=== PATIENT | male | born 1975 | race Caucasian/White ===

== ENCOUNTER → 2017-01-02 | Outpatient (CLI) | payer OTHER ==
[~2017-01-02] MED LIST: ATOR-22 PO; CYCL10TA6 PO; LISI-791 PO; METO25TA3 PO; PRED50TA PO
[2017-01-02 17:24] LABS: URINE APPEARANCE CLEAR (CLEAR); URINE BILIRUBIN NEG (NEG); URINE COLOR YELLOW; URINE NITRITE NEG (NEG); URINE PH 5.5 (4.5-7.5); URINE SPECIFIC GRAVITY 1.017 (1.000-1.030); UROBILINOGEN NEG (NEG); ZZUR CULT IF INDIC CLEAN CATCH NO
[2017-01-02 17:25] LABS: MANUAL MICROSCOPIC REQUIRED? NO; REVIEW REQ? NO
[2017-01-02 17:27] LABS: ALT/SGPT 36 U/L (12-78); BLOOD UREA NITROGEN 7 mg/dl (7-18); BUN/CREATININE RATIO 7.2 (10-20); CALCIUM 8.8 mg/dl (8.5-10.1); CARBON DIOXIDE 28 mmol/L (21-32); CHLORIDE 102 mmol/L (98-107); CHOLESTEROL 100 mg/dl (0-200); CREATININE 0.99 mg/dl (0.60-1.40); GLUCOSE 96 mg/dl (70-99); POTASSIUM 4.7 mmol/L (3.5-5.1); SODIUM 135 mmol/L (136-145); TRIGLYCERIDES 127 mg/dl (0-150); VERY LOW DENSITY LIPOPROT CALC 25 mg/dl
[2017-01-02 17:30] LABS: ALB/GLOB RATIO 1.2 (0.9-2); ALKALINE PHOSPHATASE 99 U/L (45-117); AST/SGOT 23 U/L (15-37); CHOLESTEROL/HDL RATIO 2.8; HDL CHOLESTEROL 36 mg/dl; LDL CHOLESTEROL CALCULATED 39 mg/dl
[2017-01-02 17:35] LABS: BASO % 0.5 %; BASO ABS # 0.03 K/uL (0-0.2); COMPLETE YES; HEMATOCRIT 43.4 % (42-52); IG% 0.2 %; LYMPH % 39.7 %; LYMPH ABS # 2.36 K/uL (1.2-3.4); MEAN CELL VOLUME 89.1 fL (80-100); MEAN CORPUSCULAR HEMOGLOBIN 31.2 pg (25-34); MEAN PLATELET VOLUME 10.9 fL (7.4-10.4); MONO % 4.7 %; NEUT % 50.9 %; PLATELET COUNT 178 K/uL (130-400); RED BLOOD COUNT 4.87 M/uL (4.7-6.1); WHITE BLOOD COUNT 5.94 K/uL (4.8-10.8)
[2017-01-03 06:21] LABS: ESTIMATED AVERAGE GLUCOSE 85 mg/dl; HA1C FLAG Normal (Normal)
== END | disposition home or self-care (01) ==
LOC: C.LABBFT 12:40
PROVIDERS: ATTEND Internal Medicine
DX: E78.5 Hyperlipidemia, unspecified (principal); R73.01 Impaired fasting glucose

== ENCOUNTER 2017-05-31 19:00 | Emergency (ER) | payer OTHER ==
[~2017-05-31] VITALS: Ht 172.7 cm; Wt 92.1 kg
[~2017-05-31 19:00] MED LIST changes: -ATOR-22 PO; -CYCL10TA6 PO; -METO25TA3 PO; -PRED50TA PO
[2017-05-31 19:17] VITALS: Ht 172.7 cm; Wt 92.1 kg
[2017-05-31] MEDS ORDERED: METO25TA3 PO (19:30)
[2017-05-31] MEDS ORDERED: ATOR-22 PO (19:30)
--- NOTE | 2017-05-31 20:14 | DIAGNOSTIC IMAGING REPORT ---
C-SPINE ROUTINE 4 OR 5 VIEWS CLINICAL HISTORY: Right-sided neck pain radiating into right shoulder. No known injury. COMPARISON STUDY: No previous studies for comparison. FINDINGS: There is straightening of the normal cervical lordosis. Vertebral body heights are maintained. No fracture is identified. Oblique projection demonstrates abnormal appearance of the right C3-C4 neural foramen with increased density projecting over this neural foramen and slight irregularity of the adjacent osseous structures. There is minimal multilevel disc space narrowing with mild osteophytosis. There is mild multilevel facet arthrosis. IMPRESSION: 1. Abnormal appearance of the right C3-C4 neural foramen. While this could be technical, an abnormality within this neural foramen cannot be excluded. A CT of the cervical spine could be obtained. 2. No cervical spine fracture. 3. Mild multilevel degenerative disc disease and facet arthrosis. Electronically signed by: Yaya Champion M.D. 05/31/2017 8:12 PM Dictated Date/Time: 05/31/2017 8:06 PM
--- NOTE | 2017-05-31 20:51 | DIAGNOSTIC IMAGING REPORT ---
CT OF THE CERVICAL SPINE WITHOUT CONTRAST CLINICAL HISTORY: Neck pain. Abnormal radiographs. COMPARISON STUDY: Cervical spine radiographs performed earlier today. TECHNIQUE: Helical axial images of the cervical spine were obtained without IV contrast. Sagittal and coronal reconstructions were viewed. A dose lowering technique was utilized adhering to the principles of ALARA. FINDINGS: There is slight reversal normal cervical lordosis. Craniocervical junction is intact. No acute cervical spine fracture or suspicious lesion is present. There is mild multilevel disc space narrowing and osteophytosis of the cervical spine. There is mild multilevel facet arthrosis. There is severe bony neural foraminal narrowing of the right C3-C4 neural foramen which accounts for the abnormality on radiographs. This is predominantly due to uncovertebral hypertrophy and to a lesser extent facet arthrosis. IMPRESSION: 1. No acute cervical spine fracture. 2. Severe bony narrowing of the right C3-C4 neural foramen which accounts for the abnormality on cervical spine radiographs. This narrowing is predominantly due to uncovertebral hypertrophy. This could be correlated with right C4 radiculopathy. 3. Mild multilevel degenerative disc disease and facet arthrosis of the cervical spine. Suboptimal evaluation of the central canal and neural foramen given CT technique. Electronically signed by: Yaya Champion M.D. 05/31/2017 8:50 PM Dictated Date/Time: 05/31/2017 8:43 PM
[2017-05-31] MEDS ORDERED: PRED50TA PO (21:41)
[2017-05-31] MEDS ORDERED: CYCL10TA6 PO (21:41)
--- NOTE | 2017-05-31 21:41 | EMERGENCY ROOM VISIT NOTE ---
History First contact with patient: 19:21 Chief Complaint: NECK PAIN Stated Complaint: R SHOULDER PAIN History of Present Illness The patient is a 41 year old male who presents to the Emergency Room with complaints of right-sided neck/shoulder pain. The patient states he has a pulling sensation in his right neck and shoulder which started last night. He states his symptoms worsened and became constant today. He applied ice without relief. He has not taken any medications for his symptoms. He denies any numbness or weakness of the arm. He denies any history of similar symptoms. He denies any significant injuries, but does state that he pulled on a shopping cart today which seemed to make his symptoms worse. He rates his discomfort an 8/10. Review of Systems A complete 10 point review of systems was reviewed with the patient with pertinent positives and negatives as per history of present illness. All else were negative. Past Medical/Surgical History Medical Problems: (1) History of - hypertension Social History Smoking Status: Current Every Day Smoker Alcohol Use: occasionally Housing Status: lives with family Current/Historical Medications Scheduled Atorvastatin (Lipitor), 20 MG PO QPM Metoprolol Succ (Toprol Xl) (Toprol-Xl), 25 MG PO DAILY Prednisone (Prednisone), 50 MG PO DAILY Scheduled PRN Cyclobenzaprine Hcl (Flexeril), 10 MG PO TID PRN for Pain Physical Exam Vital Signs Date Time Temp Pulse Resp B/P (MAP) Pulse Ox O2 Delivery O2 Flow Rate FiO2 05/31/17 21:57 36.7 96 16 142/78 96 05/31/17 19:17 36.7 96 16 142/78 96 Room Air Physical Exam VITALS: Vitals are noted on the nurse's note and reviewed by myself. Vital signs stable. GENERAL: This is a 41-year-old male, in no acute distress, nondiaphoretic, well- developed well-nourished. HEART: Regular rate and rhythm without murmurs gallops or rubs. LUNGS: Clear to auscultation bilaterally without wheezes, rales or rhonchi. No dullness to percussion. No retractions or accessory muscle use. MUSCULOSKELETAL: There is tenderness to palpation of the right cervical paraspinous muscles and right trapezius muscle. Full range of motion of bilateral upper extremities. Strength 5/5 in bilateral upper extremities. Radial pulses 2+. NEURO: Patient was alert and oriented to person place and time. Normal sensation to light and sharp touch. Deep tendon reflexes 2+ throughout. No focal neurological deficits. Medical Decision & Procedures ER Provider Diagnostic Interpretation: C-SPINE ROUTINE 4 OR 5 VIEWS IMPRESSION: 1. Abnormal appearance of the right C3-C4 neural foramen. While this could be technical, an abnormality within this neural foramen cannot be excluded. A CT of the cervical spine could be obtained. 2. No cervical spine fracture. 3. Mild multilevel degenerative disc disease and facet arthrosis. CT OF THE CERVICAL SPINE WITHOUT CONTRAST IMPRESSION: 1. No acute cervical spine fracture. 2. Severe bony narrowing of the right C3-C4 neural foramen which accounts for the abnormality on cervical spine radiographs. This narrowing is predominantly due to uncovertebral hypertrophy. This could be correlated with right C4 radiculopathy. 3. Mild multilevel degenerative disc disease and facet arthrosis of the cervical spine. Suboptimal evaluation of the central canal and neural foramen given CT technique. Medications Administered Medications (Trade) Dose Ordered Sig/Riley Route Start Time Stop Time Status Last Admin Dose Admin Cyclobenzaprine HCl (FLEXERIL 10MG Home Pack) 1 homepack UD ONCE PO 05/31/17 21:45 05/31/17 21:46 DC 05/31/17 21:56 1 HOMEPACK Prednisone (PredniSONE TAB) 60 mg STK-MED ONCE .ROUTE 05/31/17 21:50 05/31/17 21:51 DC 05/31/17 21:57 50 MG Medical Decision Differential diagnosis includes cervical radiculopathy, muscle spasm, pulled muscle, among others. The patient is a 41-year-old male who presents today complaining of right-sided neck and shoulder pain. X-ray was initially performed and showed a possible abnormality at C3 to C4. CT scan was performed for this reason and did show severe bony narrowing at C3 to C4, most likely causing the patient's radicular symptoms. He will be placed on a course of prednisone and Flexeril. He was given a home pack of Flexeril in the ED. He was referred back to his primary care provider for further evaluation of his symptoms. There are no neurological symptoms on exam today, but he was instructed to return back if he develops numbness or weakness of the arm. Medication Reconcilliation Current Medication List: was personally reviewed by me Blood Pressure Screening Patient's blood pressure: Elevated blood pressure Blood pressure disposition: Elevated BP felt to be situational Impression Primary Impression: Right cervical radiculopathy Departure Information Dispostion Home / Self-Care Condition GOOD Prescriptions Cyclobenzaprine Hcl (FLEXERIL) 10 Mg Tab 10 MG PO TID Y for Pain for 5 Days, #15 TAB Prov: Yoana Magaña .LINSEY 05/31/17 Prednisone (Prednisone) 50 Mg Tab 50 MG PO DAILY for 4 Days, #4 TAB Prov: Yoana Magaña PA-C 05/31/17 Referrals Erasto Marie M.D. (PCP) Patient Instructions [facility] Additional Instructions Prednisone as prescribed. You have been prescribed Flexeril (cyclobenzaprine) 1-2 tabs orally, three times per day. Do NOT exceed 30 mg (6 tabs) per day. Take your first dose at bedtime as it can make you drowsy. Always take all medications as prescribed. For pain control, you can use the following [id number] medicines (if >12 yo): - Regular strength (325mg/tab) Tylenol (acetaminophen) 2 tabs every 4-6 hours as needed. Do not exceed 12 tablets in a 24 hour period. Avoid taking more than 4 grams (4000 mg) of Tylenol per day. This includes any other sources of acetaminophen you may take on a regular basis. - Regular strength (200 mg/tab) Advil (ibuprofen) 1-2 tabs every 4-6 hours as needed. Do not exceed a dose of 3200 mg per day. Follow-up with Dr. Marie next week. Return to the emergency department with numbness of the arm, weakness of the arm , or any other new/concerning symptoms.
[2017-05-31] MEDS ORDERED: FLEXERIL HOME PACK 10 MG VIAL PO ONE (21:45)
[2017-05-31 21:57] VITALS: BP 142/78; PULSE 96; TEMP 36.7; O2SAT 96
--- NOTE | 2017-05-31 23:29 | EMERGENCY ROOM VISIT NOTE ---
ED Visit Note First contact with patient: 19:21 I have personally seen and evaluated the patient with the PA. I agree with the diagnosis and management decisions and have been personally involved in the case. Please see Yoana Magaña PA-C's notes for further details of the history, physical and visit.
== END 2017-05-31 21:55 | disposition home or self-care (01) ==
LOC: C.EDB 19:01 → C.EDD 21:55
DX: M54.12 Radiculopathy, cervical region (principal); I10 Essential (primary) hypertension; F17.200 Nicotine dependence, unspecified, uncomplicated; Z79.899 Other long term (current) drug therapy

== ENCOUNTER → 2018-01-09 | Outpatient (CLI) | payer OTHER ==
[~2018-01-09] MED LIST changes: +ATOR-22 PO; -LISI-791 PO; +METO25TA3 PO
[2018-01-09 17:40] LABS: BASO % 0.5 %; BASO ABS # 0.03 K/uL (0-0.2); EOS % 2.4 %; EOS ABS # 0.14 K/uL (0-0.5); HEMATOCRIT 39.2 % (42-52); IG# 0.01 K/uL (0.00-0.02); LYMPH % 26.6 %; LYMPH ABS # 1.58 K/uL (1.2-3.4); MEAN CELL VOLUME 87.5 fL (80-100); MEAN CORPUSCULAR HEMOGLOBIN 31.3 pg (25-34); MEAN CORPUSCULAR HGB CONC 35.7 g/dl (32-36); MONO % 5.6 %; MONO ABS # 0.33 K/uL (0.11-0.59); NEUT % 64.7 %; NEUT ABS # 3.84 K/uL (1.4-6.5); PLATELET COUNT 178 K/uL (130-400); RED CELL DISTRIBUTION WIDTH CV 13.8 % (11.5-14.5); RED CELL DISTRIBUTION WIDTH SD 43.8 fL (36.4-46.3); WHITE BLOOD COUNT 5.93 K/uL (4.8-10.8)
[2018-01-09 17:55] LABS: ALBUMIN 3.9 gm/dl (3.4-5.0); ALT/SGPT 31 U/L (12-78); AST/SGOT 18 U/L (15-37); BLOOD UREA NITROGEN 9 mg/dl (7-18); CALCIUM 8.7 mg/dl (8.5-10.1); CARBON DIOXIDE 23 mmol/L (21-32); CREATININE 0.99 mg/dl (0.60-1.40); GLUCOSE 123 mg/dl (70-99); POTASSIUM 3.7 mmol/L (3.5-5.1); SODIUM 136 mmol/L (136-145)
[2018-01-09 17:58] LABS: ALKALINE PHOSPHATASE 100 U/L (45-117); CHOLESTEROL 93 mg/dl (0-200); LDL CHOLESTEROL CALCULATED 31 mg/dl; TOTAL PROTEIN 7.5 gm/dl (6.4-8.2)
[2018-01-10 07:15] LABS: HEMOGLOBIN A1C 5.2 % (4.5-5.6)
== END | disposition home or self-care (01) ==
LOC: C.LABBFT 13:36
PROVIDERS: ATTEND Internal Medicine
DX: R73.01 Impaired fasting glucose (principal); E78.5 Hyperlipidemia, unspecified

== ENCOUNTER 2025-05-17 17:16 | Observation (INO) ==
[2025-05-17 17:38] LABS: Hematocrit (blood only) 44.8 % (42.0-52.0); Hemoglobin 16.2 g/dl (14.0-18.0); Immature Granulocytes # (auto) 0.03 K/uL (0.01-0.20); Immature Granulocytes % (auto) 0.3 %; Mean Corpuscular Hemoglobin 31.4 pg (25.0-34.0); Mean Corpuscular Volume 86.8 fL (80.0-100.0); Platelet Count 212 K/uL (130-400); RDW Standard Deviation 41.3 fL (36.4-46.3); Red Blood Count 5.16 M/uL (4.70-6.10); White Blood Count 10.50 K/ul (4.8-10.8)
[2025-05-17 17:57] LABS: Alanine Aminotransferase 18 U/L (7-52); Albumin Globulin Ratio 1.3 (0.9-2); Alkaline Phosphatase 104 U/L (34-104); Anion Gap 13 (3-11); Bilirubin,Total 1.7 mg/dl (0.2-1.0); Blood Urea Nitrogen 12 mg/dl (6-23); Calcium 10.0 mg/dl (8.6-10.3); Carbon Dioxide 20 mmol/L (21-32); Chloride 103 mmol/L (98-107); Globulin 3.7 gm/dl (2.5-4.0); Glucose 158 mg/dl (70-99(Fasting)); Magnesium 1.8 mg/dl (1.7-2.4); Potassium 4.2 mmol/L (3.5-5.1); Sodium 136 mmol/L (136-145); Total Protein 8.6 gm/dl (6.0-8.3)
[2025-05-17] MEDS: OPTIRAY 320 125ml IV ONE (17:57)
--- NOTE | 2025-05-17 18:15 | Emergency Department Note ---
Impression & Plan Syncope and collapse, Chin laceration, Laceration of lip, complicated, Aneurysm of thoracic aorta ED Provider Note NAME: TENA JACOBO AGE: 49 SEX: M : 1975 ARRIVES VIA: Ambulance INFORMANT: Patient, ED PROVIDER(S): Parul Doss MD CHIEF COMPLAINT: Syncope HPI: This is an 49-year-old male presenting for syncope. The patient states that [id number] 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 Patient about all day in the heat and humidity today. He notes that when he arrived to work he had extreme chest pain. He states it was left-sided chest. He notes he ate something and it did improve. He notes that about 30 minutes later he had passed out. He reports he was out for about 30 seconds as per bystanders. He reports any current shortness of breath, back pain, neck pain, headache, vision changes. ROS: See above HPI for pertinent positives & negatives. A total of 10 systems reviewed and were otherwise negative. PAST MEDICAL HISTORY: See Below PAST SURGICAL HISTORY: See Below FAMILY HISTORY: See Below SOCIAL HISTORY: See Below HOME MEDICATIONS: See Below ALLERGIES: See Below VITALS: See Below PHYSICAL EXAMINATION: General: resting comfortably in no acute distress Head: Normocephalic lacerations to the lip and chin Eyes: Normal inspection, extraocular muscles intact Ear, nose, throat: Normal external exam Neck: Normal range of motion Respiratory: lungs clear to auscultation bilaterally Cardiovascular: Regular rate/rhythm, no murmur GI: soft, nontender, no guarding or rebound Extremities: nontender, moves all extremities Neuro: The patient awake and alert, appropriately conversive, no focal deficits, symmetric faces Skin: Warm, dry, and intact MEDICAL DECISION MAKING: This is a 49-year-old male presented for syncope. Patient had chest pain and that there were 30 minutes later had syncope. Consider cardiac syncope, dehydration and as patient was out all day in the heat, dissection, aneurysm. Patient is a history of a thoracic aneurysm last measuring 4.[address] of the chest, neck, head. -Bloodwork is reviewed showing no significant leukocytosis, anemia, electrolyte or creatinine abnormality - CT imaging of the chest does not reveal worsening aneurysm or new dissection. Otherwise no traumatic injuries are noted. - Patient does have a 5 cm laceration to the chin as well as a through and through laceration to the lower lip. - Please see Bere Andrea PA-C note for laceration repairs - Otherwise patient did have chest pain and syncope 30 minutes later. While low concern with negative troponins, still consider cardiogenic syncope due to this. Consider tachydysrhythmia. will discuss with inpatient team for admission - Care discussed with Dr. Wiggins for admission Differential diagnosis: Cardiac syncope, dissection, aneurysm, PE, pneumonia, dehydration, heatstroke Diagnostics interpreted by me: ECG: ECG independently interpreted by me with normal sinus rhythm with first- degree AV block, MS 220, normal QRS, normal QTc, no ST segment elevations consistent with STEMI criteria T wave versions in lead III Cardiac Monitoring: An order was placed for continuous cardiac monitoring. The monitor shows a rate of 76 with sinus rhythm. Past Med/Surg History Problem List (Updated 05/18/25 @ 00:57 by Parul Doss MD) Laceration of lip, complicated (Acute) Chin laceration (Acute) Syncope and collapse (Acute) Syncope and collapse Urinary hesitancy Diabetes type 2, controlled BPH loc w urin obs/LUTS Umbilical hernia Aneurysm of thoracic aorta (Acute) CARDIO-[facility]- last checked in Sep 2024 Peripheral neuropathy (Acute) Hypertension (Chronic) Dyslipidemia (Chronic) Medical History Aneurysm of thoracic aorta monitoring; follows w/ [facility]io HTN (hypertension) Dyslipidemia Peripheral neuropathy BPH (benign prostatic hyperplasia) Umbilical hernia no issues at present Diabetes mellitus, type 2 Surgical History History of left cataract extraction 07/12/22 History of right cataract extraction 06/21/2022 History of tonsillectomy Family History Mother Hypertension Aunt Hypertension Grandfather (Maternal) Cancer Father Unknown family medical history Denies family history of Ovarian cancer Prostate cancer Coronary heart disease Breast cancer Colorectal cancer Social History Smoking Status: Never smoker Second Hand Exposure: No; Do You Dip or Chew Tobacco: No (quit 3 years ago); Hx Alcohol Use: Yes Alcohol type: beer Alcohol Intake Frequency: Monthly or Less Hx Substance Use: No Preferred Language: Tamaz[place] Communication Ability: Effective Hearing Ability: Normal Heel Cutter Required: No Beliefs That Will Affect Care: None marital status: Single Current Living Situation: Parent Current Living Situation Comment: lives w/ mother current occupational status: employed current occupation: [employer] How many Children do You have: 0 Feels Safe at Home: Yes Safety Concerns: Feels Safe At This Time Childhood Exposure to Second-Hand Smoke: No Diet: regular caffeine: Yes Dental Care, Regularly: No Physical Activity Frequency: Daily Physical Activity Frequency Comment: walk Seatbelt Use: always Sunscreen Use: No Assistive Devices: None Allergies Allergies Allergy/AdvReac Type Severity Reaction Status Date / Time No Known Allergies Allergy Verified 05/17/25 21:38 Home Meds Home Medications Medication Instructions Recorded Confirmed albuterol sulfate 90 mcg/actuation 2 puff inhalation QID PRN 05/17/25 05/17/25 aerosol inhaler Shortness Of Breath Or Wheezing Previous Rx's Medication Instructions Recorded atorvastatin 20 mg tablet (Lipitor) 20 mg PO HS #90 tabs 07/15/24 metoprolol succinate 25 mg 25 mg PO QAM #90 tabs 07/15/24 tablet,extended release 24 hr mecobalamin (vitamin B12) 1,000 1,000 mcg PO DAILY #90 tabs 10/18/24 mcg chewable tablet (B12 Active) metformin 500 mg tablet,extended 1,500 mg (3 x 500 mg) PO QAM 90 01/13/25 release 24 hr days #270 tabs tamsulosin 0.4 mg capsule (Flomax) 0.4 mg PO QAM #90 caps 04/14/25 Results & Data (ED) Vital Signs Vital Signs - 24 hr 05/17/25 17:11 05/17/25 17:11 05/17/25 17:11 Temperature 36.6 C Temperature Source Oral Pulse Rate 85 Pulse Rate [Apical] Pulse Rate from SpO2 Sensor Respiratory Rate 20 Respiratory Effort / Characteristics Non-Labored Spontaneous Respiratory Depth Normal Respiratory Pattern Regular Blood Pressure 119/92 Blood Pressure [Right Arm] Blood Pressure Mean 101 Blood Pressure Mean [Right Arm] Blood Pressure Position Sitting Pulse Oximetry 96 96 96 Oxygen Delivery Method Room Air Room Air Room Air Sepsis Recent Fever Within 48 Hours No Sepsis New/Unexplained Change in Mental Status N/A Sepsis Action Taken by Nursing No Action Required 05/17/25 17:34 05/17/25 17:36 05/17/25 18:38 Temperature Temperature Source Pulse Rate 85 Pulse Rate [Apical] 90 Pulse Rate from SpO2 Sensor Respiratory Rate 20 Respiratory Effort / Characteristics Non-Labored Spontaneous Respiratory Depth Normal Respiratory Pattern Regular Blood Pressure Blood Pressure [Right Arm] 124/83 Blood Pressure Mean Blood Pressure Mean [Right Arm] 96 Blood Pressure Position Pulse Oximetry 95 94 Oxygen Delivery Method Room Air Room Air Sepsis Recent Fever Within 48 Hours Sepsis New/Unexplained Change in Mental Status Sepsis Action Taken by Nursing 05/17/25 19:00 05/17/25 19:30 05/17/25 20:00 Temperature Temperature Source Pulse Rate 82 79 70 Pulse Rate [Apical] Pulse Rate from SpO2 Sensor Respiratory Rate 21 21 18 Respiratory Effort / Characteristics Respiratory Depth Respiratory Pattern Blood Pressure 116/77 117/77 135/97 Blood Pressure [Right Arm] Blood Pressure Mean 85 92 110 Blood Pressure Mean [Right Arm] Blood Pressure Position Pulse Oximetry 93 93 97 Oxygen Delivery Method Sepsis Recent Fever Within 48 Hours Sepsis New/Unexplained Change in Mental Status Sepsis Action Taken by Nursing 05/17/25 20:30 05/17/25 21:00 Temperature Temperature Source Pulse Rate 75 73 Pulse Rate [Apical] Pulse Rate from SpO2 Sensor 73 Respiratory Rate 21 20 Respiratory Effort / Characteristics Respiratory Depth Respiratory Pattern Blood Pressure 165/106 H 146/98 H Blood Pressure [Right Arm] Blood Pressure Mean 119 114 Blood Pressure Mean [Right Arm] Blood Pressure Position Pulse Oximetry 98 96 Oxygen Delivery Method Sepsis Recent Fever Within 48 Hours Sepsis New/Unexplained Change in Mental Status Sepsis Action Taken by Nursing Laboratory Data 05/17/25 17:20 05/17/25 17:20 Lab Results 05/17/25 05/17/25 05/17/25 Range/Units 17:20 17:28 19:35 WBC 10.50 (4.8-10.8) K/ul RBC 5.16 (4.70-6.10) M/uL Hgb 16.2 (14.0-18.0) g/dl Hct 44.8 (42.0-52.0) % MCV 86.8 (80.0-100.0) fL MCH 31.4 (25.0-34.0) pg MCHC 36.2 H (32.0-36.0) g/dL RDW Std Deviation 41.3 (36.4-46.3) fL RDW Coeff of Jeannette 13.2 (11.5-14.5) % Plt Count 212 (130-400) K/uL MPV 10.4 (9.4-12.4) fL Immature Gran % (Auto) 0.3 % Neut % (Auto) 68.0 % Lymph % (Auto) 22.6 % [place] % (Auto) 6.0 % Eos % (Auto) 2.3 % Baso % (Auto) 0.8 % Neut # (Auto) 7.15 H (1.40-6.50) K/uL Lymph # (Auto) 2.37 (1.20-3.40) K/uL [place] # (Auto) 0.63 H (0.11-0.59) K/uL Eos # (Auto) 0.24 (0.00-0.50) K/uL Baso # (Auto) 0.08 (0.00-0.20) K/uL Immature Gran # (Auto) 0.03 (0.01-0.20) K/uL Sodium 136 (136-145) mmol/L Potassium 4.2 (3.5-5.1) mmol/L Chloride 103 (98-107) mmol/L Carbon Dioxide 20 L (21-32) mmol/L Anion Gap 13 H (3-11) BUN 12 (6-23) mg/dl Creatinine 1.33 (0.6-1.4) mg/dl Est Cr Clr Drug Dosing Not Reportable eGFR 64.72 BUN/Creatinine Ratio 9.0 L (10-20) Glucose 158 H (70-99(Fasting)) mg/dl POC Glucose 169 H (70-99) mg/dl Calcium 10.0 (8.6-10.3) mg/dl Magnesium 1.8 (1.7-2.4) mg/dl Total Bilirubin 1.7 H (0.2-1.0) mg/dl AST 20 (13-39) U/L ALT 18 (7-52) U/L Alkaline Phosphatase 104 (34-104) U/L Troponin I High Sens 5.4 6.3 (0-20) pg/ml Total Protein 8.6 H (6.0-8.3) gm/dl Albumin 4.9 (3.4-5.0) gm/dl Globulin 3.7 (2.5-4.0) gm/dl Albumin/Globulin Ratio 1.3 (0.9-2) Administered Medications Discontinued Medications Sodium Chloride (Nss) 1,000 mls @ 999 mls/hr IV .Q1H1M ONE Stop: 05/17/25 20:22 Last Infusion: 05/17/25 20:34 Dose: Infused Documented By: Admin: 05/17/25 19:32 Dose: 999 mls/hr Documented By: JACQUELINE Ioversol (Optiray 320 125ml) 118 ml IV ONCE ONE Stop: 05/17/25 17:57 Last Admin: 05/17/25 17:57 Dose: 118 ml Documented By: ANN Lidocaine HCl (Lidocaine 1% Local 20 Ml Vial) 20 ml INFIL NOW ONE Stop: 05/17/25 21:22 Last Admin: 05/17/25 23:41 Dose: Not Given Documented By: MALORIE Lidocaine/Epinephrine (Lidocaine 1%/Epinephrine 1:100,000 50 Ml Vial) 5 ml INFIL NOW ONE Stop: 05/17/25 21:22 Last Admin: 05/17/25 23:41 Dose: Not Given Documented By: MALORIE Imaging Data Radiologist's Impression: Cervical Spine CT 05/17/25 17:46 EXAM: CT cervical spine wo con CLINICAL HISTORY: Fall, trauma, LOC TECHNIQUE: CT scan of the cervical spine was performed without the administration of intravenous contrast. Contiguous axial images were obtained from the skull base to the upper thoracic spine. Coronal and sagittal reformatted images were also reviewed. One of the following dose reduction techniques was utilized for this exam. Automated exposure control, adjustment of the mA and/or kV according to patient size, and use of iterative reconstruction. COMPARISON: 05/31/2017 FINDINGS: Vertebrae: Straightening of the usual cervical lordosis likely due to muscle spasm. The vertebral bodies are normal in height and alignment. No evidence of acute fracture or dislocation. The cortical and trabecular bone patterns are normal. No signs of lytic or sclerotic lesions. Marginal osteophytes are seen in the vertebral bodies. Intervertebral Discs: Mild narrowing of the C5-C6 and C6-C7 intervertebral disc spaces. Multilevel disc bulges are seen, most notably at C5-C6 and C6-C7 levels, now with small osteophyte complexes. No significant spinal canal stenosis. Facet Joints: The facet joints are normal without evidence of dislocation, subluxation, or significant degenerative changes. Uncovertebral hypertrophy at right C2-C3 and C3-C4 levels, as well as bilateral C6-C7 levels causing mild neural foraminal stenosis. Neural Foramina: The rest of the neural foramina are patent. No evidence of nerve root compression. Prevertebral Soft Tissues: The prevertebral soft tissues are normal in thickness without evidence of mass or abnormal fluid collection. Additional Findings: No other significant findings are noted in the visualized soft tissue structures or bony elements. IMPRESSION: 1. No evidence of acute fracture or dislocation 2. Spondylodegenerative changes with multilevel disc bulges, now with small osteophyte complexes. Otherwise, no significant interval change. Electronically signed by Mick Lares 05-17-2025 8:05 PM Chest CTA 05/17/25 17:46 EXAM: CT angio chest dissec wo/w con CLINICAL HISTORY: Aneurysm, syncope TECHNIQUE: CT angiography of the chest was performed with and without intravenous contrast with the following protocol: axial images with, reconstructed coronal and sagittal images. Non-contrast images were initially acquired, followed by contrast-enhanced images in arterial and venous phases. Intravenous contrast was administered using automated injection techniques. Bolus tracking was employed to optimize arterial phase imaging. One of these 3D techniques was utilized: Maximum Intensity Pixel (MIP), 3D Reconstructed Images, Volume Rendered Images, Surface Shaded Rendering. One of the following dose reduction techniques was utilized for this exam: Automated exposure control, adjustment of the mA and/or kV according to patient size, and use of iterative reconstruction. COMPARISON: 03/30/2022 FINDINGS: Aorta and Great Vessels: Ascending Aorta: Stable diameter of 4.2 cm, dilated. No aneurysm, dissection, or significant atherosclerosis. Aortic Arch: Normal in caliber, no aneurysm, dissection, or significant atherosclerosis. Descending Aorta: Normal in caliber, no aneurysm, dissection, or significant atherosclerosis. Pulmonary Arteries: The main pulmonary artery and its branches are patent. No evidence of pulmonary embolism or significant stenosis. Heart: Cardiac Chambers: Normal in size. No evidence of cardiomegaly. Pericardium: No pericardial effusion or thickening. Lungs and Pleura: No evidence of consolidation, collapse, or focal lesions. Stable small calcified nodule in the right lung apex. Tiny non-calcified nodules are also seen in the lung apex measuring up to 3mm. No pleural effusion or pleural thickening. Mediastinum: No mediastinal mass. Stable few calcified lymph nodes in the right upper paratracheal and right hilar regions. Normal appearance of the trachea and central bronchi. Hilar Structures: Hilar structures are normal without enlargement. Chest Wall: No mass lesions or abnormalities in the chest wall. Vascular Structures: Superior Vena Cava: Patent without evidence of stenosis or thrombus. Inferior Vena Cava: Patent without evidence of stenosis or thrombus. Bones and Soft Tissues: No fractures, lytic, or blastic lesions of the visualized bony structures. Soft tissues are unremarkable. Multiple tiny calcifications in the spleen, stable. IMPRESSION: 1. Stable aneurysmal dilatation of the ascending aorta measuring 4.2 cm. No dissection. 2. No evidence of pulmonary embolism. 3. No acute traumatic findings. 4. Findings of small calcified nodule in the right lung apex, small mediastinal calcified lymph nodes and tiny splenic calcifications are likely old granulomatous process. 5. Few tiny non-calcified nodules in the right lung apex, up to 3 mm. No routine follow-up as per Fleischner Society guideline recommendation. Electronically signed by Mick Lares 05-17-2025 8:[address] 05/17/25 17:46 EXAM: CT facial bones wo con CLINICAL HISTORY: Fall ,trauma, LOC TECHNIQUE: CT scan of the maxillofacial region was performed without the administration of intravenous contrast. Contiguous axial images were obtained from the skull base to the mandible. Coronal and sagittal reformatted images were also reviewed. One of the following dose reduction techniques was utilized for this exam. Automated exposure control, adjustment of the mA and/or kV according to patient size, and use of iterative reconstruction. COMPARISON: No previous studies are available for comparison. FINDINGS: Bones: Maxilla: The maxillary bones are intact without evidence of acute fracture, lytic or sclerotic lesions. No signs of maxillary sinus wall fractures. Mandible: There is no evidence of fracture or neoplastic lesion. Zygomatic Bones: The zygomatic arches are intact bilaterally without evidence of fracture or deformity. Nasal Bones: The nasal bones are intact with no signs of fracture or displacement. Orbital Kang: The orbital kang are intact with no evidence of fracture or bony erosion. Orbits: The orbits are normal in size and shape. The globes are symmetric and well-positioned with no evidence of proptosis. The extraocular muscles appear normal in size and symmetry. The optic nerves are normal in caliber and course with no signs of compression or lesion. No retro-orbital masses or abnormal fluid collections are observed. Nasal Cavity and Paranasal Sinuses: Nasal Cavity: The nasal cavity is clear with no evidence of masses, polyps. Deviated nasal septum towards right. Paranasal Sinuses: Mucosal thickening is noted in bilateral frontal , maxillary and ethmoid sinuses. The sphenoid sinuses are clear with no abnormalities noted. Temporomandibular Joints (TMJ): The TMJs are symmetric and normal in appearance. The mandibular condyles are well-positioned within the glenoid fossae. There are no signs of dislocation, subluxation, or degenerative changes. The articular eminences are normal in contour. Soft Tissues: Some soft tissue and skin thickening is seen at inferior aspect of chin - can be post-traumatic. The soft tissues of the face, including the cheeks, lips, and submandibular regions, appear unremarkable. There are no masses, cysts, or abnormal fluid collections. The parotid and submandibular glands are normal in size and appearance without focal lesions. Dentition: Teeth are deficient in superior and inferior alveolar arch with some erosive/osteolytic changes in right half of mandibular alveolar arch. There are no signs of periapical abscesses or cystic lesions. IMPRESSION: 1. CT scan of the maxillofacial region show no evidence of acute fracture, dislocation. 2. Some soft tissue and skin thickening is seen at inferior aspect of chin - can be post-traumatic. 3. Mucosal thickening is noted in bilateral frontal , maxillary and ethmoid sinuses. 4. Deviated nasal septum towards right. 5. Teeth are deficient in superior and inferior alveolar arch with some erosive/osteolytic changes in right half of mandibular alveolar arch. RECOMMENDATIONS: No further imaging is required at this time. Clinical correlation is recommended for any persistent symptoms. Electronically signed by Mick Lares 05-17-2025 8:[address] 05/17/25 17:46 EXAM: CT head/brain wo con CLINICAL HISTORY: Fall, trauma, LOC TECHNIQUE: Axial non-contrast CT scan of the brain was performed from the skull base to the high parietal region. One of the following dose reduction techniques were utilized for this exam: Automated exposure control, adjustment of the mA and/or kV according to patient size, use of iterative reconstruction. COMPARISON: None. FINDINGS: Brain Parenchyma: Normal attenuation of the cerebral hemispheres, cerebellum, and brainstem. No evidence of acute infarct, hemorrhage, or mass effect. No abnormal areas of hypo- or hyperattenuation. Ventricular System: Ventricles are normal in size and configuration. No evidence of hydrocephalus or ventricular enlargement. Subarachnoid Spaces: Normal sulci and cisterns. No evidence of subarachnoid hemorrhage or extra-axial fluid collections. Cerebellum and Brainstem: No masses, lesions, or areas of abnormal density. Orbits: Normal appearance of the globes, optic nerves, and extraocular muscles. No evidence of orbital masses or abnormal density. Sinuses: Clear paranasal sinuses. No evidence of sinusitis or mucosal thickening. Mastoid Air Cells: Clear mastoid air cells. No evidence of mastoiditis. Skull: Normal skull morphology. IMPRESSION: Normal CT of the head without contrast. Electronically signed by Mick Lares 05-17-2025 7:48 PM Discharge Plan Visit Data Chief Complaint: Syncope ED Provider: Parul Doss Discharge Problem: Syncope and collapse, Chin laceration, Laceration of lip, complicated, Aneurysm of thoracic aorta Patient Disposition: Admitted As Inpatient Condition: Fair Discharge Instructions Interventions: ED Discharge Assessment Last Done: 05/17/25 22:58 Discharge Problem: Chin laceration Qualifiers: Encounter type: initial encounter Qualified Code(s): S01.81XA - Laceration without foreign body of other part of head, initial encounter Laceration of lip, complicated Qualifiers: Encounter type: initial encounter Qualified Code(s): S01.511A - Laceration without foreign body of lip, initial encounter Aneurysm of thoracic aorta Qualifiers: Thoracic aorta location: ascending aorta Presence of rupture: without rupture Q ualified Code(s): I71.21 - Aneurysm of the ascending aorta, without rupture
[2025-05-17] MEDS: SODIUM CHLORIDE 0.9% 1,000 ML IV ONE (19:32)
--- NOTE | 2025-05-17 19:49 | CT Scan Report ---
EXAM: CT head/brain wo con CLINICAL HISTORY: Fall, trauma, LOC TECHNIQUE: Axial non-contrast CT scan of the brain was performed from the skull base to the high parietal region. One of the following dose reduction techniques were utilized for this exam: Automated exposure control, adjustment of the mA and/or kV according to patient size, use of iterative reconstruction. COMPARISON: None. FINDINGS: Brain Parenchyma: Normal attenuation of the cerebral hemispheres, cerebellum, and brainstem. No evidence of acute infarct, hemorrhage, or mass effect. No abnormal areas of hypo- or hyperattenuation. Ventricular System: Ventricles are normal in size and configuration. No evidence of hydrocephalus or ventricular enlargement. Subarachnoid Spaces: Normal sulci and cisterns. No evidence of subarachnoid hemorrhage or extra-axial fluid collections. Cerebellum and Brainstem: No masses, lesions, or areas of abnormal density. Orbits: Normal appearance of the globes, optic nerves, and extraocular muscles. No evidence of orbital masses or abnormal density. Sinuses: Clear paranasal sinuses. No evidence of sinusitis or mucosal thickening. Mastoid Air Cells: Clear mastoid air cells. No evidence of mastoiditis. Skull: Normal skull morphology. IMPRESSION: Normal CT of the head without contrast. Electronically signed by Mick Lares 05-17-2025 7:48 PM
--- NOTE | 2025-05-17 20:06 | CT Scan Report ---
EXAM: CT angio chest dissec wo/w con CLINICAL HISTORY: Aneurysm, syncope TECHNIQUE: CT angiography of the chest was performed with and without intravenous contrast with the following protocol: axial images with, reconstructed coronal and sagittal images. Non-contrast images were initially acquired, followed by contrast-enhanced images in arterial and venous phases. Intravenous contrast was administered using automated injection techniques. Bolus tracking was employed to optimize arterial phase imaging. One of these 3D techniques was utilized: Maximum Intensity Pixel (MIP), 3D Reconstructed Images, Volume Rendered Images, Surface Shaded Rendering. One of the following dose reduction techniques was utilized for this exam: Automated exposure control, adjustment of the mA and/or kV according to patient size, and use of iterative reconstruction. COMPARISON: 03/30/2022 FINDINGS: Aorta and Great Vessels: Ascending Aorta: Stable diameter of 4.2 cm, dilated. No aneurysm, dissection, or significant atherosclerosis. Aortic Arch: Normal in caliber, no aneurysm, dissection, or significant atherosclerosis. Descending Aorta: Normal in caliber, no aneurysm, dissection, or significant atherosclerosis. Pulmonary Arteries: The main pulmonary artery and its branches are patent. No evidence of pulmonary embolism or significant stenosis. Heart: Cardiac Chambers: Normal in size. No evidence of cardiomegaly. Pericardium: No pericardial effusion or thickening. Lungs and Pleura: No evidence of consolidation, collapse, or focal lesions. Stable small calcified nodule in the right lung apex. Tiny non-calcified nodules are also seen in the lung apex measuring up to 3mm. No pleural effusion or pleural thickening. Mediastinum: No mediastinal mass. Stable few calcified lymph nodes in the right upper paratracheal and right hilar regions. Normal appearance of the trachea and central bronchi. Hilar Structures: Hilar structures are normal without enlargement. Chest Wall: No mass lesions or abnormalities in the chest wall. Vascular Structures: Superior Vena Cava: Patent without evidence of stenosis or thrombus. Inferior Vena Cava: Patent without evidence of stenosis or thrombus. Bones and Soft Tissues: No fractures, lytic, or blastic lesions of the visualized bony structures. Soft tissues are unremarkable. Multiple tiny calcifications in the spleen, stable. IMPRESSION: 1. Stable aneurysmal dilatation of the ascending aorta measuring 4.2 cm. No dissection. 2. No evidence of pulmonary embolism. 3. No acute traumatic findings. 4. Findings of small calcified nodule in the right lung apex, small mediastinal calcified lymph nodes and tiny splenic calcifications are likely old granulomatous process. 5. Few tiny non-calcified nodules in the right lung apex, up to 3 mm. No routine follow-up as per Fleischner Society guideline recommendation. Electronically signed by Mick Lares 05-17-2025 8:06 PM
--- NOTE | 2025-05-17 20:06 | CT Scan Report ---
EXAM: CT cervical spine wo con CLINICAL HISTORY: Fall, trauma, LOC TECHNIQUE: CT scan of the cervical spine was performed without the administration of intravenous contrast. Contiguous axial images were obtained from the skull base to the upper thoracic spine. Coronal and sagittal reformatted images were also reviewed. One of the following dose reduction techniques was utilized for this exam. Automated exposure control, adjustment of the mA and/or kV according to patient size, and use of iterative reconstruction. COMPARISON: 05/31/2017 FINDINGS: Vertebrae: Straightening of the usual cervical lordosis likely due to muscle spasm. The vertebral bodies are normal in height and alignment. No evidence of acute fracture or dislocation. The cortical and trabecular bone patterns are normal. No signs of lytic or sclerotic lesions. Marginal osteophytes are seen in the vertebral bodies. Intervertebral Discs: Mild narrowing of the C5-C6 and C6-C7 intervertebral disc spaces. Multilevel disc bulges are seen, most notably at C5-C6 and C6-C7 levels, now with small osteophyte complexes. No significant spinal canal stenosis. Facet Joints: The facet joints are normal without evidence of dislocation, subluxation, or significant degenerative changes. Uncovertebral hypertrophy at right C2-C3 and C3-C4 levels, as well as bilateral C6-C7 levels causing mild neural foraminal stenosis. Neural Foramina: The rest of the neural foramina are patent. No evidence of nerve root compression. Prevertebral Soft Tissues: The prevertebral soft tissues are normal in thickness without evidence of mass or abnormal fluid collection. Additional Findings: No other significant findings are noted in the visualized soft tissue structures or bony elements. IMPRESSION: 1. No evidence of acute fracture or dislocation 2. Spondylodegenerative changes with multilevel disc bulges, now with small osteophyte complexes. Otherwise, no significant interval change. Electronically signed by Mick Lares 05-17-2025 8:05 PM
--- NOTE | 2025-05-17 20:15 | CT Scan Report ---
EXAM: CT facial bones wo con CLINICAL HISTORY: Fall ,trauma, LOC TECHNIQUE: CT scan of the maxillofacial region was performed without the administration of intravenous contrast. Contiguous axial images were obtained from the skull base to the mandible. Coronal and sagittal reformatted images were also reviewed. One of the following dose reduction techniques was utilized for this exam. Automated exposure control, adjustment of the mA and/or kV according to patient size, and use of iterative reconstruction. COMPARISON: No previous studies are available for comparison. FINDINGS: Bones: Maxilla: The maxillary bones are intact without evidence of acute fracture, lytic or sclerotic lesions. No signs of maxillary sinus wall fractures. Mandible: There is no evidence of fracture or neoplastic lesion. Zygomatic Bones: The zygomatic arches are intact bilaterally without evidence of fracture or deformity. Nasal Bones: The nasal bones are intact with no signs of fracture or displacement. Orbital Kang: The orbital kang are intact with no evidence of fracture or bony erosion. Orbits: The orbits are normal in size and shape. The globes are symmetric and well-positioned with no evidence of proptosis. The extraocular muscles appear normal in size and symmetry. The optic nerves are normal in caliber and course with no signs of compression or lesion. No retro-orbital masses or abnormal fluid collections are observed. Nasal Cavity and Paranasal Sinuses: Nasal Cavity: The nasal cavity is clear with no evidence of masses, polyps. Deviated nasal septum towards right. Paranasal Sinuses: Mucosal thickening is noted in bilateral frontal , maxillary and ethmoid sinuses. The sphenoid sinuses are clear with no abnormalities noted. Temporomandibular Joints (TMJ): The TMJs are symmetric and normal in appearance. The mandibular condyles are well-positioned within the glenoid fossae. There are no signs of dislocation, subluxation, or degenerative changes. The articular eminences are normal in contour. Soft Tissues: Some soft tissue and skin thickening is seen at inferior aspect of chin - can be post-traumatic. The soft tissues of the face, including the cheeks, lips, and submandibular regions, appear unremarkable. There are no masses, cysts, or abnormal fluid collections. The parotid and submandibular glands are normal in size and appearance without focal lesions. Dentition: Teeth are deficient in superior and inferior alveolar arch with some erosive/osteolytic changes in right half of mandibular alveolar arch. There are no signs of periapical abscesses or cystic lesions. IMPRESSION: 1. CT scan of the maxillofacial region show no evidence of acute fracture, dislocation. 2. Some soft tissue and skin thickening is seen at inferior aspect of chin - can be post-traumatic. 3. Mucosal thickening is noted in bilateral frontal , maxillary and ethmoid sinuses. 4. Deviated nasal septum towards right. 5. Teeth are deficient in superior and inferior alveolar arch with some erosive/osteolytic changes in right half of mandibular alveolar arch. RECOMMENDATIONS: No further imaging is required at this time. Clinical correlation is recommended for any persistent symptoms. Electronically signed by Mick Lares 05-17-2025 8:15 PM
--- NOTE | 2025-05-17 21:10 | History & Physical Report ---
Date of Service May 17, 2025 Assessment & Plan (1) Syncope and collapse: (2) Diabetes type 2, controlled: Plan 49-year-old male PMHx T2DM, thoracic aortic aneurysm, peripheral neuropathy, HTN, dyslipidemia, BPH, recent positive FIT test presenting for syncopal episode with associated crushing chest pain on day of arrival. ED evaluation revealed CBC without leukocytosis, stable H&H; CMP carbon dioxide 20, anion gap 13, BUN/creatinine ratio 9, glucose 158, on repeat 169; bilirubin 1.7; protein 8.6; troponin 5.4, 6.3 on repeat; C-spine CT no evidence of acute fracture or dislocation, spondylodegenerative changes multilevel disc bulges with small osteophyte complexes; chest CTA stable aneurysmal dilatation of ascending aorta (4.2 cm), no dissection, no PE, no acute findings, small calcified nodule R lung apex, small mediastinal calcified lymph node calcification likely old g ranulomatous process; face CT no evidence of acute fracture or dislocation, soft tissue and skin thickening at inferior aspect of the chin, mucosal thickening bilateral frontal/maxillary/ethmoid sinuses, deviated septum; head CT normal; EKG sinus rhythm with a first-degree AV block at 87 bpm.; Provided with 1L NSS in ED. #Syncope/Fall Syncope with fall day of arrival; states that he did not eat anything during the day, did have 6 bottles of water however. Proceeded by chest tightness that did not radiate but then lightheadedness and collapse. Reported LOC for demi roximately 3 minutes, no involuntary movements. No history of seizures. No current chest pain, SOB, or palpitations. Current pain at admission located at base of chin, 4/10 on the pain scale. Patient is diabetic, does not blood sugars at home. Has had 2 negative troponins. Suspect this may be secondary to combination of heat/not eating/? cardiac origin. Low suspicion for seizure/neurologic etiology. Sutures in place on face (lip inside and outside, chin). Again, chest pain free. - CBC without leukocytosis, stable H&H; CMP AG 13, glucose 158 and then on repeat 169 - Troponin 5.4, 6.3 on repeat - EKG sinus rhythm with 1st degree AV block at 87 bpm, no ischemic changes - Chest CTA aneurysm with dilatation of ascending aorta (4.2 cm), no dissection, no PE -- calcified nodule R lung apex, calcified lymph node - Face CT no acute fracture/dislocation, soft tissue and skin thickening at the inferior aspect of the chin - Head CT WNL - Fall precautions - Echo pending - Tylenol prn pain/fever, zofran prn N/V - Monitor on tele #T2DM H/o DMT2, complicated by peripheral neuropathy; Home regimen is metformin. - Most recent A1C 03/2025 @ 5.8% - Hold all oral meds - SSI with target BSG range 110-140mg/dL, CF 25, carb ratio 10 - BSG ACHS if eating - Adjust regimen as needed #Thoracic aortic aneurysm- Being watched by cardio (most recent visit 10/24/2024) , chest CTA redemonstrates stable aneurysmal dilatation of ascending aorta (4.2 cm) without dissection #HTN- Metoprolol - continue #HLD- Atorvastatin - continue #BPH-Tamsulosin - continue Dispo: Obs, med/tele VTE Prophylaxis: SCDs This document was dictated utilizing [employer]. Please excuse any grammatical errors that may be secondary to use of this software. Admission and Anticipated Discharge Date Admission Date: 05/17/2025 History of Present Illness Chief Complaint: Syncope Primary Care Provider: Erasto Marie MD 49-year-old male PMHx T2DM, thoracic aortic aneurysm, peripheral neuropathy, HTN, dyslipidemia, BPH, recent positive FIT test presenting for syncopal episode with associated crushing chest pain on day of arrival. 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 He does admit that he started to have a centralized chest tightness that came on suddenly and then he became lightheaded and syncopized. He reports that bystanders said he had LOC for around 3 minutes, but no seizure like movements were appreciated. He reports not eating anything the day that this occurred, and he does have a history of diabetes but does not keep track of his sugars. He drank around 6 bottles of water. He denies current chest pain. Did not experience palpitations, SOB, N/V, or focal deficits prior to this event. Has never had this happen before. Pt did fall to the ground, landing on the concrete ground and injuring his face. He has 4/10 pain at the base of his chin, which is the location of a laceration. He is not having any difficulties swallowing or difficulties breathing. He denies current chest pain, SOB, palpitations, abdominal pain, N/V/D/C, numbness/tingling, fever/chills, LUTS, weakness, headache, visual changes, or feelings of presyncope. He took all of his medications except for his nighttime metoprolol on the day of arrival. He has never had this happen before. ED evaluation revealed CBC without leukocytosis, stable H&H; CMP carbon dioxide 20, anion gap 13, BUN/creatinine ratio 9, glucose 158, on repeat 169; bilirubin 1.7; protein 8.6; troponin 5.4, 6.3 on repeat; C-spine CT no evidence of acute fracture or dislocation, spondylodegenerative changes multilevel disc bulges with small osteophyte complexes; chest CTA stable aneurysmal dilatation of ascending aorta (4.2 cm), no dissection, no PE, no acute findings, small calcified nodule 1R lung apex, small mediastinal calcified lymph node antiasthmatic calcification likely old granulomatous process; face CT no evidence of acute fracture or dislocation, soft tissue and skin thickening at [place] aspect of the chin, mucosal thickening bilateral frontal/maxillary/ethmoid sinuses, deviated septum; head CT normal; EKG sinus rhythm with a first-degree AV block at 87 bpm.; Provided with 1L NSS in ED. Please see Dr. Wiggins attestation for adjustments/additions to treatment plan. Allergies Allergy/AdvReac Type Severity Reaction Status Date / Time No Known Allergies Allergy Verified 05/17/25 21:38 Home Medications Medication Instructions Recorded Confirmed Type atorvastatin 20 mg tablet (Lipitor) 20 mg PO HS #90 tabs 07/15/24 05/17/25 Rx metoprolol succinate 25 mg 25 mg PO QAM #90 tabs 07/15/24 05/17/25 Rx tablet,extended release 24 hr mecobalamin (vitamin B12) 1,000 1,000 mcg PO DAILY #90 tabs 10/18/24 05/17/25 Rx mcg chewable tablet (B12 Active) metformin 500 mg tablet,extended 1,500 mg (3 x 500 mg) PO QAM 90 01/13/25 05/17/25 Rx release 24 hr days #270 tabs tamsulosin 0.4 mg capsule (Flomax) 0.4 mg PO QAM #90 caps 04/14/25 05/17/25 Rx albuterol sulfate 90 mcg/actuation 2 puff inhalation QID PRN 05/17/25 05/17/25 History aerosol inhaler Shortness Of Breath Or Wheezing Past Med/Surg History Problem List (Updated 05/18/25 @ 00:57 by Parul Doss MD) Laceration of lip, complicated (Acute) Chin laceration (Acute) Syncope and collapse (Acute) Syncope and collapse Urinary hesitancy Diabetes type 2, controlled BPH loc w urin obs/LUTS Umbilical hernia Aneurysm of thoracic aorta (Acute) [facility]- last checked in Sep 2024 Peripheral neuropathy (Acute) Hypertension (Chronic) Dyslipidemia (Chronic) Medical History Aneurysm of thoracic aorta monitoring; follows w/ [facility] HTN (hypertension) Dyslipidemia Peripheral neuropathy BPH (benign prostatic hyperplasia) Umbilical hernia no issues at present Diabetes mellitus, type 2 Surgical History History of left cataract extraction 07/12/22 History of right cataract extraction 06/21/2022 History of tonsillectomy Family History Mother Hypertension Aunt Hypertension Grandfather (Maternal) Cancer Father Unknown family medical history Denies family history of Ovarian cancer Prostate cancer Coronary heart disease Breast cancer Colorectal cancer Social History Smoking Status: Never smoker Second Hand Exposure: No; Do You Dip or Chew Tobacco: No (quit 3 years ago); Hx Alcohol Use: Yes Alcohol type: beer Alcohol Intake Frequency: Monthly or Less Hx Substance Use: No Preferred Language: Georgian Communication Ability: Effective Hearing Ability: Normal Coroner Required: No Beliefs That Will Affect Care: None marital status: Single Current Living Situation: Parent Current Living Situation Comment: lives w/ mother current occupational status: employed current occupation: [employer] How many Children do You have: 0 Feels Safe at Home: Yes Safety Concerns: Feels Safe At This Time Childhood Exposure to Second-Hand Smoke: No Diet: regular caffeine: Yes Dental Care, Regularly: No Physical Activity Frequency: Daily Physical Activity Frequency Comment: walk Seatbelt Use: always Sunscreen Use: No Assistive Devices: None Review of Systems Review of Systems: All systems reviewed & are unremarkable except as noted in Subjective Physical Exam Physical Exam: General: No acute distress Skin: Warm and dry; Lacerations at bottom lip, inner and outer aspects, laceration of base of chin. Head: Normocephalic, atraumatic Eyes: PERRL, conjunctivae clear, sclera non-icteric ENT: External ear and ear canal without swelling; nose atraumatic; good dentition, tongue normal appearance, pharynx normal Neck: Supple, no LAD Cardio: RRR, no M/G/R, S1 and S2 normal Resp: No respiratory distress, Lungs CTA in all lobes bilaterally, no wheezes, rales, or rhonchi Abdomen: Soft, symmetric, nontender; No masses or hepatosplenomegaly; Bowel sounds normoactive MSK: No deformities; pulses palpable and equal; no edema. Neuro: Awake, alert; Sensation intact bilaterally; CN grossly intact; No neurological deficits Psych: ? slow processing of some questions; Appropriate mood and affect; good judgement and insight. Results & Data Results & Data Vital Signs (Past 12 Hours) Vital Signs Temp Pulse Pulse Resp BP BP Pulse Ox 05/17/25 20:30 75 21 165/106 H 98 05/17/25 20:00 70 18 135/97 97 05/17/25 19:30 79 21 117/77 93 05/17/25 19:00 82 21 116/77 93 05/17/25 18:38 90 20 124/83 94 05/17/25 17:36 95 05/17/25 17:34 85 05/17/25 17:11 96 05/17/25 17:11 96 05/17/25 17:11 36.6 C 85 20 119/92 96 O2 Del Method 05/17/25 20:30 05/17/25 20:00 05/17/25 19:30 05/17/25 19:00 05/17/25 18:38 Room Air 05/17/25 17:36 Room Air 05/17/25 17:34 05/17/25 17:11 Room Air 05/17/25 17:11 Room Air 05/17/25 17:11 Room Air Laboratory Results 05/17/25 05/17/25 05/17/25 19:35 17:28 17:20 WBC 10.50 RBC 5.16 Hgb 16.2 Hct 44.8 MCV 86.8 MCH 31.4 MCHC 36.2 H RDW Std Deviation 41.3 RDW Coeff of Jeannette 13.2 Plt Count 212 MPV 10.4 Immature Gran % (Auto) 0.3 Neut % (Auto) 68.0 Lymph % (Auto) 22.6 Emmet % (Auto) 6.0 Eos % (Auto) 2.3 Baso % (Auto) 0.8 Neut # (Auto) 7.15 H Lymph # (Auto) 2.37 Emmet # (Auto) 0.63 H Eos # (Auto) 0.24 Baso # (Auto) 0.08 Immature Gran # (Auto) 0.03 Sodium 136 Potassium 4.2 Chloride 103 Carbon Dioxide 20 L Anion Gap 13 H BUN 12 Creatinine 1.33 Est Cr Clr Drug Dosing Not Reportable eGFR 64.72 BUN/Creatinine Ratio 9.0 L Glucose 158 H POC Glucose 169 H Calcium 10.0 Magnesium 1.8 Total Bilirubin 1.7 H AST 20 ALT 18 Alkaline Phosphatase 104 Troponin I High Sens 6.3 5.4 Total Protein 8.6 H Albumin 4.9 Globulin 3.7 Albumin/Globulin Ratio 1.3 Diagnostic Findings Cervical Spine CT 05/17/25 17:46 EXAM: CT cervical spine wo con CLINICAL HISTORY: Fall, trauma, LOC TECHNIQUE: CT scan of the cervical spine was performed without the administration of intravenous contrast. Contiguous axial images were obtained from the skull base to the upper thoracic spine. Coronal and sagittal reformatted images were also reviewed. One of the following dose reduction techniques was utilized for this exam. Automated exposure control, adjustment of the mA and/or kV according to patient size, and use of iterative reconstruction. COMPARISON: 05/31/2017 FINDINGS: Vertebrae: Straightening of the usual cervical lordosis likely due to muscle spasm. The vertebral bodies are normal in height and alignment. No evidence of acute fracture or dislocation. The cortical and trabecular bone patterns are normal. No signs of lytic or sclerotic lesions. Marginal osteophytes are seen in the vertebral bodies. Intervertebral Discs: Mild narrowing of the C5-C6 and C6-C7 intervertebral disc spaces. Multilevel disc bulges are seen, most notably at C5-C6 and C6-C7 levels, now with small osteophyte complexes. No significant spinal canal stenosis. Facet Joints: The facet joints are normal without evidence of dislocation, subluxation, or significant degenerative changes. Uncovertebral hypertrophy at right C2-C3 and C3-C4 levels, as well as bilateral C6-C7 levels causing mild neural foraminal stenosis. Neural Foramina: The rest of the neural foramina are patent. No evidence of nerve root compression. Prevertebral Soft Tissues: The prevertebral soft tissues are normal in thickness without evidence of mass or abnormal fluid collection. Additional Findings: No other significant findings are noted in the visualized soft tissue structures or bony elements. IMPRESSION: 1. No evidence of acute fracture or dislocation 2. Spondylodegenerative changes with multilevel disc bulges, now with small osteophyte complexes. Otherwise, no significant interval change. Electronically signed by Mick Lares 05-17-2025 8:05 PM Chest CTA 05/17/25 17:46 EXAM: CT angio chest dissec wo/w con CLINICAL HISTORY: Aneurysm, syncope TECHNIQUE: CT angiography of the chest was performed with and without intravenous contrast with the following protocol: axial images with, reconstructed coronal and sagittal images. Non-contrast images were initially acquired, followed by contrast-enhanced images in arterial and venous phases. Intravenous contrast was administered using automated injection techniques. Bolus tracking was employed to optimize arterial phase imaging. One of these 3D techniques was utilized: Maximum Intensity Pixel (MIP), 3D Reconstructed Images, Volume Rendered Images, Surface Shaded Rendering. One of the following dose reduction techniques was utilized for this exam: Automated exposure control, adjustment of the mA and/or kV according to patient size, and use of iterative reconstruction. COMPARISON: 03/30/2022 FINDINGS: Aorta and Great Vessels: Ascending Aorta: Stable diameter of 4.2 cm, dilated. No aneurysm, dissection, or significant atherosclerosis. Aortic Arch: Normal in caliber, no aneurysm, dissection, or significant atherosclerosis. Descending Aorta: Normal in caliber, no aneurysm, dissection, or significant atherosclerosis. Pulmonary Arteries: The main pulmonary artery and its branches are patent. No evidence of pulmonary embolism or significant stenosis. Heart: Cardiac Chambers: Normal in size. No evidence of cardiomegaly. Pericardium: No pericardial effusion or thickening. Lungs and Pleura: No evidence of consolidation, collapse, or focal lesions. Stable small calcified nodule in the right lung apex. Tiny non-calcified nodules are also seen in the lung apex measuring up to 3mm. No pleural effusion or pleural thickening. Mediastinum: No mediastinal mass. Stable few calcified lymph nodes in the right upper paratracheal and right hilar regions. Normal appearance of the trachea and central bronchi. Hilar Structures: Hilar structures are normal without enlargement. Chest Wall: No mass lesions or abnormalities in the chest wall. Vascular Structures: Superior Vena Cava: Patent without evidence of stenosis or thrombus. Inferior Vena Cava: Patent without evidence of stenosis or thrombus. Bones and Soft Tissues: No fractures, lytic, or blastic lesions of the visualized bony structures. Soft tissues are unremarkable. Multiple tiny calcifications in the spleen, stable. IMPRESSION: 1. Stable aneurysmal dilatation of the ascending aorta measuring 4.2 cm. No dissection. 2. No evidence of pulmonary embolism. 3. No acute traumatic findings. 4. Findings of small calcified nodule in the right lung apex, small mediastinal calcified lymph nodes and tiny splenic calcifications are likely old granulomatous process. 5. Few tiny non-calcified nodules in the right lung apex, up to 3 mm. No routine follow-up as per Fleischner Society guideline recommendation. Electronically signed by Mick Lares 05-17-2025 8:[address] 05/17/25 17:46 EXAM: CT facial bones wo con CLINICAL HISTORY: Fall ,trauma, LOC TECHNIQUE: CT scan of the maxillofacial region was performed without the administration of intravenous contrast. Contiguous axial images were obtained from the skull base to the mandible. Coronal and sagittal reformatted images were also reviewed. One of the following dose reduction techniques was utilized for this exam. Automated exposure control, adjustment of the mA and/or kV according to patient size, and use of iterative reconstruction. COMPARISON: No previous studies are available for comparison. FINDINGS: Bones: Maxilla: The maxillary bones are intact without evidence of acute fracture, lytic or sclerotic lesions. No signs of maxillary sinus wall fractures. Mandible: There is no evidence of fracture or neoplastic lesion. Zygomatic Bones: The zygomatic arches are intact bilaterally without evidence of fracture or deformity. Nasal Bones: The nasal bones are intact with no signs of fracture or displacement. Orbital Kang: The orbital kang are intact with no evidence of fracture or bony erosion. Orbits: The orbits are normal in size and shape. The globes are symmetric and well-positioned with no evidence of proptosis. The extraocular muscles appear normal in size and symmetry. The optic nerves are normal in caliber and course with no signs of compression or lesion. No retro-orbital masses or abnormal fluid collections are observed. Nasal Cavity and Paranasal Sinuses: Nasal Cavity: The nasal cavity is clear with no evidence of masses, polyps. Deviated nasal septum towards right. Paranasal Sinuses: Mucosal thickening is noted in bilateral frontal , maxillary and ethmoid sinuses. The sphenoid sinuses are clear with no abnormalities noted. Temporomandibular Joints (TMJ): The TMJs are symmetric and normal in appearance. The mandibular condyles are well-positioned within the glenoid fossae. There are no signs of dislocation, subluxation, or degenerative changes. The articular eminences are normal in contour. Soft Tissues: Some soft tissue and skin thickening is seen at inferior aspect of chin - can be post-traumatic. The soft tissues of the face, including the cheeks, lips, and submandibular regions, appear unremarkable. There are no masses, cysts, or abnormal fluid collections. The parotid and submandibular glands are normal in size and appearance without focal lesions. Dentition: Teeth are deficient in superior and inferior alveolar arch with some erosive/osteolytic changes in right half of mandibular alveolar arch. There are no signs of periapical abscesses or cystic lesions. IMPRESSION: 1. CT scan of the maxillofacial region show no evidence of acute fracture, dislocation. 2. Some soft tissue and skin thickening is seen at inferior aspect of chin - can be post-traumatic. 3. Mucosal thickening is noted in bilateral frontal , maxillary and ethmoid sinuses. 4. Deviated nasal septum towards right. 5. Teeth are deficient in superior and inferior alveolar arch with some erosive/osteolytic changes in right half of mandibular alveolar arch. RECOMMENDATIONS: No further imaging is required at this time. Clinical correlation is recommended for any persistent symptoms. Electronically signed by Mick Lares 05-17-2025 8:[address] 05/17/25 17:46 EXAM: CT head/brain wo con CLINICAL HISTORY: Fall, trauma, LOC TECHNIQUE: Axial non-contrast CT scan of the brain was performed from the skull base to the high parietal region. One of the following dose reduction techniques were utilized for this exam: Automated exposure control, adjustment of the mA and/or kV according to patient size, use of iterative reconstruction. COMPARISON: None. FINDINGS: Brain Parenchyma: Normal attenuation of the cerebral hemispheres, cerebellum, and brainstem. No evidence of acute infarct, hemorrhage, or mass effect. No abnormal areas of hypo- or hyperattenuation. Ventricular System: Ventricles are normal in size and configuration. No evidence of hydrocephalus or ventricular enlargement. Subarachnoid Spaces: Normal sulci and cisterns. No evidence of subarachnoid hemorrhage or extra-axial fluid collections. Cerebellum and Brainstem: No masses, lesions, or areas of abnormal density. Orbits: Normal appearance of the globes, optic nerves, and extraocular muscles. No evidence of orbital masses or abnormal density. Sinuses: Clear paranasal sinuses. No evidence of sinusitis or mucosal thickening. Mastoid Air Cells: Clear mastoid air cells. No evidence of mastoiditis. Skull: Normal skull morphology. IMPRESSION: Normal CT of the head without contrast. Electronically signed by Mick Lares 05-17-2025 7:48 PM Medications Administered 1L NSS ECG Additional Comments: Sinus rhythm with first-degree AV block 87 bpm, NE 11/07/2019, QRS 112, QT/QTc 370/450, PRT -15/-5/-6 Code Status & VTE Plan Code Status Full "No ocean transportation intermediary machines... No longer than 1 week." Supervising Physician Co-Signing Physician Notes Patient seen and examined, chart reviewed, case discussed with LINSEY Pulido and I agree with the assessment and plan as above. In brief, patient is a 49yo male with history of DM, HTN, HLP presenting with a syncopal episode prior to arrival - event preceded by episode of crushing chest pain. Patient had been working outside all day today in the heat - did not eat at all but did drink several bottles of water. Patient did sustain several lacerations to his face as well as several broken teeth. On exam patient is resting, being prepped for sutures at present - laceration to chin appx 5cm, inside and outside of lip. Teeth broken in the front as well. PERRL +S1/S2, regular CTA Abd soft, NT/ND Labs and images reviewed Troponin = 5.4 --> 6.3 EKG with no acute ischemic changes Trauma scans reviewed Assessment/Plan Chest pain - likely non-cardiac given normal EKG, troponin x 2 unremarkable. Repeat troponin with AM labs as it does show an increase Syncope - check 2D echo, repeat troponin Remainder as above PG Care Time/CCT Total # of Minutes Spent Total Time Spent with Patient: Total time spent is greater than 50% in coordination of care (as documented) at patient's floor/unit and/or counseling patient: Coding Level of Care Code 17392 INT INP/OBS CARE 3/75MIN Diagnoses Syncope and collapse R55 Diabetes type 2, controlled E11.9
--- NOTE | 2025-05-17 21:22 | Emergency Department Note ---
ED Visit Note I was asked by Dr. Doss to repair this patient's lacerations. Please refer to his dictation for full details. In short, the patient had a syncopal episode that caused 3 lacerations under his chin and to his lower lip. The laceration under his chin was 5 cm in length. It was relatively straight and did not extend past the subcutaneous tissue. The edges did gape apart with traction. No deep structures injured within the base of the wound. No active bleeding. No foreign bodies noted. The patient also had a 2.5 cm laceration to the inside of the lower lip and a 2 cm laceration to the outside of the lower lip. There are a few areas along these 2 lacerations where they communicate, but it is not fully flapped open. The external laceration runs along the vermilion border, but does not cross the vermilion border. No deep structures injured within the base of the wounds. No active bleeding. No foreign bodies noted. The edges gape apart with traction. Risks and benefits of the procedure were discussed. Verbal consent was obtained to perform the procedure and the procedure was performed by myself. Using sterile technique the wounds were cleaned with Betadine. The areas were sterilely draped. 3 ml of 1% lidocaine with epi was used to anesthetize the chin laceration and a total of 2 mL of of 1% lidocaine was used to anesthetize the lip lacerations. Once the patient was anesthetized, the wounds were copiously irrigated under pressure with sterile saline. The wounds were explored and there were no deep structures injured. The chin laceration was repaired using 12 simple interrupted 6-0 nylon sutures with the wound edges being well approximated. The external lip laceration was repaired using 4 simple interrupted 6-0 nylon sutures with the wound edges being well approximated and careful attention to alignment of the vermilion border. The internal lip laceration was repaired using 4 simple interrupted 6-0 nylon sutures with the wound edges being well-approximated. The patient tolerated the procedure well. Hemostasis was achieved. The areas were cleaned with sterile saline and the chin laceration was dressed with bacitracin ointment. .
[2025-05-17] MEDS ORDERED: CARBOHYDRATES FOR HYPOGLYCEMIA PO PRN (23:33)
[2025-05-17] MEDS ORDERED: ALBUTEROL HFA 8 GM INHALER INH PRN (23:33)
[2025-05-17] MEDS ORDERED: ACETAMINOPHEN 325 MG TAB PO PRN (23:33)
[2025-05-17] MEDS ORDERED: GLUCAGON FOR INJ 1 MG VIAL SQ PRN (23:33)
[2025-05-17] MEDS ORDERED: GLUCOSE 40% GEL 15 GM TUBE PO PRN (23:33)
[2025-05-17] MEDS ORDERED: DEXTROSE 50% 50 ML SYRINGE IV PRN (23:33)
[2025-05-17] MEDS ORDERED: GLUCOSE 10 TAB/TUBE PO PRN (23:33)
[2025-05-17] MEDS ORDERED: MAGNESIUM HYDROXIDE SUSP 30 ML UDC PO PRN (23:33)
[2025-05-17] MEDS ORDERED: ONDANSETRON INJ 2 MG/ML 2 ML VIAL IV PRN (23:33)
[2025-05-17] MEDS ORDERED: POLYETHYLENE (MIRALAX) 17 GM PACK PO PRN (23:33)
[2025-05-17] MEDS ORDERED: MELATONIN 3 MG TAB PO PRN (23:33)
[2025-05-17] MEDS: LIDOCAINE 1% LOCAL 20 ML VIAL INFIL ONE (23:41)
[2025-05-17] MEDS: LIDOCAINE 1%/EPINEPHRINE 1:100,000 50 ML VIAL INFIL ONE (23:41)
[2025-05-18 05:48] LABS: Hematocrit (blood only) 40.5 % (42.0-52.0); Hemoglobin 14.7 g/dl (14.0-18.0); Mean Corpuscular Hemoglobin 31.8 pg (25.0-34.0); Mean Corpuscular Volume 87.7 fL (80.0-100.0); Platelet Count 168 K/uL (130-400); RDW Standard Deviation 42.3 fL (36.4-46.3); Red Blood Count 4.62 M/uL (4.70-6.10); White Blood Count 9.63 K/ul (4.8-10.8)
[2025-05-18 06:05] LABS: Anion Gap 11.0 (3-11); Blood Urea Nitrogen 11.0 mg/dl (6-23); Calcium 8.9 mg/dl (8.6-10.3); Carbon Dioxide 21.0 mmol/L (21-32); Chloride 105.0 mmol/L (98-107); Creatinine Clr Calc Pharmacy 95.6 ml/min; Glucose 130.0 mg/dl (70-99(Fasting)); Potassium 3.9 mmol/L (3.5-5.1); Sodium 137.0 mmol/L (136-145)
[2025-05-18] MEDS: TAMSULOSIN HCL 0.4 MG CAP PO SCH (07:58)
[2025-05-18] MEDS: METOPROLOL SUCC 25MG EXT REL TAB PO SCH (08:00)
[2025-05-18] MEDS: INSULIN ASPART PER UNIT CHARGE SC SCH (09:24)
--- NOTE | 2025-05-18 10:21 | Discharge Summary ---
Discharge Summary Date of Service May 18, 2025 Principal Dx & Hospital Course #1 = Principal Diagnosis (1) Syncope and collapse: (2) Diabetes type 2, controlled: Plan 49-year-old male PMHx T2DM, thoracic aortic aneurysm, peripheral neuropathy, HTN, dyslipidemia, BPH, recent positive FIT test presenting for syncopal episode with associated crushing chest pain on day of arrival. #Syncope/Fall Syncope with fall day of arrival; states that he did not eat anything during the day, did have 6 bottles of water however. Proceeded by chest tightness that did not radiate but then lightheadedness and collapse. Reported LOC for approximately 3 minutes, no involuntary movements. No history of seizures. No current chest pain, SOB, or palpitations. Current pain at admission located at base of chin, 4/10 on the pain scale. Patient is diabetic, does not blood sugars at home. Has had 2 negative troponins. Suspect this may be secondary to combination of heat/not eating/? cardiac origin. Low suspicion for seizure/neurologic etiology. Sutures in place on face (lip inside and outside, chin). Again, chest pain free. CT of C spine: no evidece of acute fracture or dislocation Chest CTA: stable aneurysmal dilatation of ascending aorta (4.2cm), no dissection, no PE, no acute findings. Face CT: no evidence of acute fx or dislocation. soft tissue & skin thickening @ inferior aspect of chin, mucosal thickening b/l frontal/maxillary/ethmoid sinuses, devidated septum Head CT: negative EKG: sinus rhythm w/ 1st degree AV block @ 87bpm Tropnin neg x 2 CBC/CMP stable. Echo read pending; hx of stress echo in 2021 that was negative for ischemia. Recommend follow up w/ PCP for Holter monitor. Discussed w/ pt that he should ideally stay hydrated & maintain adequate nutrition while working in the heat. - reports he has had similar episodes in the past but is usually able to eat prior to avoid LOC. #T2DM H/o DMT2, complicated by peripheral neuropathy; Home regimen is metformin. Most recent A1C 03/2025 @ 5.8% Resume outpatient diabetic meds on discharge. #Thoracic aortic aneurysm- Being watched by cardio (most recent visit 10/24/2024) , chest CTA re-demonstrates stable aneurysmal dilatation of ascending aorta (4.2 cm) without dissection #HTN- Metoprolol - continue #HLD- Atorvastatin - continue #BPH-Tamsulosin - continue Discharged home 05/18 Admission HPI Per Admitting Provider 49-year-old male PMHx T2DM, thoracic aortic aneurysm, peripheral neuropathy, HTN, dyslipidemia, BPH, recent positive FIT test presenting for syncopal episode with associated crushing chest pain on day of arrival. 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 He does admit that he started to have a centralized chest tightness that came on suddenly and then he became lightheaded and syncopized. He reports that bystanders said he had LOC for around 3 minutes, but no seizure like movements were appreciated. He reports not eating anything the day that this occurred, and he does have a history of diabetes but does not keep track of his sugars. He drank around 6 bottles of water. He denies current chest pain. Did not experience palpitations, SOB, N/V, or focal deficits prior to this event. Has never had this happen before. Pt did fall to the ground, landing on the concrete ground and injuring his face. He has 4/10 pain at the base of his chin, which is the location of a laceration. He is not having any difficulties swallowing or difficulties breathing. He denies current chest pain, SOB, palpitations, abdominal pain, N/V/D/C, numbness/tingling, fever/chills, LUTS, weakness, headache, visual changes, or feelings of presyncope. He took all of his medications except for his nighttime metoprolol on the day of arrival. He has never had this happen before. ED evaluation revealed CBC without leukocytosis, stable H&H; CMP carbon dioxide 20, anion gap 13, BUN/creatinine ratio 9, glucose 158, on repeat 169; bilirubin 1.7; protein 8.6; troponin 5.4, 6.3 on repeat; C-spine CT no evidence of acute fracture or dislocation, spondylodegenerative changes multilevel disc bulges with small osteophyte complexes; chest CTA stable aneurysmal dilatation of ascending aorta (4.2 cm), no dissection, no PE, no acute findings, small calcified nodule 1R lung apex, small mediastinal calcified lymph node antiasthmatic calcification likely old granulomatous process; face CT no evidence of acute fracture or dislocation, soft tissue and skin thickening at [place]ira aspect of the chin, mucosal thickening bilateral frontal/maxillary/ethmoid sinuses, deviated septum; head CT normal; EKG sinus rhythm with a first-degree AV block at 87 bpm.; Provided with 1L NSS in ED. Please see Dr. Wiggins attestation for adjustments/additions to treatment plan. Discharge Exam Constitutional WD/WN, vitals as above Eyes PERRL, conjunctivae normal, anicteric sclerae Respiratory normal respiratory effort, lungs clear to auscultation Cardiovascular RRR, no murmur, no edema Neurologic PERRL, EOMI, accommodation nl, no face palsy, no dysarthria Psychiatric A+Ox3, euthymic affect Discharge Plan Discharge Items Patient Disposition: Home - Self-Care Reason For Visit: SYNCOPE, CP Discharge Diagnosis: Syncope Condition on Discharge: Fair Activity: Resume your previous activity Non-emergency contact: Primary Care Provider Call non-emergency contact if: you have any medication questions and your symptoms worsen Follow-up/Referrals: Erasto Marie MD [Primary Care Provider] - Diet: Carb Consistent or DM2 Addtl Attending Provider Instructions: Mr. Hollis, You were recently hospitalized for a syncopal episode. You underwent a workup that was negative. This is thought to be related to being in the heat without drinking adequate fluids or eating prior. In the future please be sure you drink water & get adequate nutrition prior to being in the heat. Please resume your outpatient medications. Please follow up with your PCP within 1-2 weeks of discharge. If you develop any chest pain, shortness of breath, or another syncopal episode please report back to the ED for further care. Best of luck! No Wolff PA-C Pending Studies at Discharge: Yes Studies:: echo read Stand-Alone Forms: My [employer], Smoking Cessation Medications and DC Order Prescriptions: Continued atorvastatin [Lipitor] 20 mg tablet 20 mg PO HS Qty: 90 3RF metoprolol succinate 25 mg tablet extended release 24 hr 25 mg PO QAM Qty: 90 3RF mecobalamin (vitamin B12) [B12 Active] 1,000 mcg tablet,chewable 1,000 mcg PO DAILY Qty: 90 3RF metformin 500 mg tablet extended release 24 hr 1,500 mg PO QAM 90 Days Qty: 270 3RF tamsulosin [Flomax] 0.4 mg capsule 0.4 mg PO QAM Qty: 90 1RF albuterol sulfate 90 mcg/actuation HFA aerosol inhaler 2 puff INHALATION QID PRN (Reason: Shortness Of Breath Or Wheezing) Discharge Orders: Discharge Order (Routine); Ordered 05/18/25 Ordered By: No Wolff Admission Data Admit Date/Time: 05/17/25 21:31 Attending Provider: Ruddy Tanner Admit Provider: Poornima Wiggins Primary Care Provider: Erasto Marie Other Providers: Poornima Wiggins Hospital Stay Data Consultations 05/17/25 21:17 ED Decision to Admit Stat Diagnostic Imagining Performed 05/17/25 17:46 CT face [CT facial bones wo con] Stat CT head/brain wo con Stat CT neck [CT cervical spine wo con] Stat CTA chest dissec wo/w con [CT angio chest dissec wo/w con] Stat Pending Results Patient Have Any Pending Studies at Discharge: Yes Discharge Instructions Given to Patient (Per Discharging Provider) Mr. Hollis, You were recently hospitalized for a syncopal episode. You underwent a workup that was negative. This is thought to be related to being in the heat without drinking adequate fluids or eating prior. In the future please be sure you drink water & get adequate nutrition prior to being in the heat. Please resume your outpatient medications. Please follow up with your PCP within 1-2 weeks of discharge. If you develop any chest pain, shortness of breath, or another syncopal episode please report back to the ED for further care. Best of luck! No Wolff PA-C Total Time Total Time Spent Total Time Spent (In Minutes): 35 Total Time Includes: Examination of the Patient, Discharge Planning and Medication Reconciliation Coding Level of Care Code 57625 INP/OBS DISCH >30 MIN Diagnoses Syncope and collapse R55 Diabetes type 2, controlled E11.9
[2025-05-18 11:26] VITALS: BP 126/75; PULSE 57; RESP 18; TEMP 98.1; O2SAT 95
[2025-05-18] MEDS ORDERED: ATORVASTATIN 20 MG TAB PO SCH (21:00)
--- NOTE | 2025-05-19 10:27 | Electrocardiogram Report ---
Test Reason : Blood Pressure : */* mmHG Vent. Rate : 87 BPM Atrial Rate : 87 BPM P-R Int : 220 ms QRS Dur : 112 ms QT Int : 374 ms P-R-T Axes : -15 -5 -6 degrees QTcB Int : 450 ms Sinus rhythm with 1st degree A-V block Poor R wave progression, consider anterior OR vs. lead placement vs. LVH Abnormal ECG Confirmed by Yfn Esquivel ([id number]) on 05/19/2025 10:27:32 AM Referred By: REFERRED SELF Confirmed By: Yfn Esquivel
== END 2025-05-18 12:28 | disposition home or self-care (01) ==
LOC: ED 17:16 → 2N 17:16 → SUATTDRO 21:31 → 2N 22:58